=== PATIENT | female | born 1980 | race Caucasian/White ===

== ENCOUNTER → 2017-04-12 | Outpatient (CLI) | payer OTHER | LOC: LAB 09:30 | DX: N91.2 Amenorrhea, unspecified (principal) | CPT/HCPCS: 84703 ==

== ENCOUNTER → 2021-06-20 | Outpatient (CLI) | payer OTHER ==
[~2021-06-20] MED LIST: CLINDAMYCIN HC300 MG PO; IBUPROFEN600 MG PO; METFORMIN HCL500 MG PO; NORCO 5-325 TA1 EACH PO; NORCO 7.5-3251 EACH PO; PROVERA10 MG PO; SINGULAIR10 MG PO; TESSALON PERLE100 MG PO; ZYRTEC10 MG PO; ZYVOX600 MG PO
== END ==
LOC: ECHO 11:18
DX: R06.00 Dyspnea, unspecified (principal); R07.9 Chest pain, unspecified; R94.31 Abnormal electrocardiogram [ECG] [EKG]; R00.2 Palpitations; E66.9 Obesity, unspecified
CPT/HCPCS: ECHO; 93306

== ENCOUNTER 2021-11-26 19:17 | Emergency (ER) | payer OTHER ==
[2021-11-27] MEDS ORDERED: MOBIC15 MG PO (00:16)
[2021-11-27] MEDS ORDERED: CYCLOBENZAPRINE10 MG PO (00:16)
== END 2021-11-27 00:25 | disposition home or self-care (01) ==
LOC: ER1 19:17
DX: S09.90XA Unspecified injury of head, initial encounter (principal); S16.1XXA Strain of muscle, fascia and tendon at neck level, initial encounter; S39.012A Strain of muscle, fascia and tendon of lower back, initial encounter; S29.012A Strain of muscle and tendon of back wall of thorax, initial encounter; S50.312A Abrasion of left elbow, initial encounter; M47.815 Spondylosis without myelopathy or radiculopathy, thoracolumbar region; M47.818 Spondylosis without myelopathy or radiculopathy, sacral and sacrococcygeal region; E11.9 Type 2 diabetes mellitus without complications; V49.40XA Driver injured in collision with unspecified motor vehicles in traffic accident, initial encounter; Y92.410 Unspecified street and highway as the place of occurrence of the external cause
CPT/HCPCS: 70450; 72072; 72100; 72125; 99284

== ENCOUNTER → 2021-12-10 | Outpatient (CLI) | payer OTHER ==
[~2021-12-10] MED LIST changes: +CYCLOBENZAPRINE10 MG PO; +MOBIC15 MG PO
== END ==
LOC: RAD 15:39
DX: M25.532 Pain in left wrist (principal)
CPT/HCPCS: 73110